=== PATIENT | male | born 2000 | race Caucasian/White ===

== ENCOUNTER 2022-12-03 06:29 | Emergency (ER) | payer MEDICAID, OTHER ==
[2022-12-03] MEDS ORDERED: Sodium Chloride 0.9% 250 ML 250 ML ONE (07:31)
[2022-12-03] MEDS ORDERED: Ondansetron PF 4 MG/2 ML Vial ONE (07:31)
[2022-12-03] MEDS ORDERED: CEFAZOLIN 2 GM VIAL ONE (07:31)
[2022-12-03] MEDS ORDERED: Morphine 4 MG/ML VIAL ONE (07:31)
[2022-12-03] MEDS ORDERED: Boostrix 0.5 ML (Tdap) VIAL (>/=7 yrs of age) ONE (07:31)
[2022-12-03 07:33] LABS: Hemoglobin 10.4 g/dL (14.0-18.0); Mean Corpuscular HGB CONC 35.2 g/dL (32.0-36.0); Mean Corpuscular Hemoglobin 31.5 pg (27.0-31.0); Mean Corpuscular Volume 89.6 fl (78.0-98.0); Mean Platelet Volume 7.3 fL (7.4-10.4); Platelet Count 215 10x3/uL (130-400); RBC Distribution Width 11.7 % (11.5-14.5); Red Blood Cell (RBC) Count 3.31 mill/uL (4.70-6.10); White Blood Cell (WBC) Count 27.3 10x3/uL (4.8-10.8)
[2022-12-03 07:38] LABS: Manual Diff?? YES
[2022-12-03 07:39] LABS: Band 2 % (5-11); MDiff Complete? YES; Neutrophil 85 % (42-75)
[2022-12-03 07:41] LABS: Anisocytosis SLIGHT = 6-15 cells (100X) (0-5/hpf); Lymphocytes 7 % (21-51); Monocytes 6 % (0-10); Platelet Morphology Comment Appears Adequate
[2022-12-03 07:45] LABS: ALT (SGPT) 13 U/L (8-55); AST (SGOT) 16 U/L (5-34); Albumin 3.4 g/dL (3.5-5.0); Alcohol Less than 10 mg/dL (Less than 10); Alkaline Phosphatase 48 U/L (40-110); Anion Gap 15 mmol/L (10-20); BUN (Urea Nitrogen) 12 mg/dL (8.9-20.6); Bilirubin, Total 0.6 mg/dL (0.2-1.2); Calc. Creatinine Clearance 0 mL/min (70-130); Calcium 7.7 mg/dL (7.8-10.44); Carbon Dioxide 18 mmol/L (22-29); Chloride 110 mmol/L (98-107); Estimated GFR 123; Globulin 1.9 g/dL (2.4-3.5); Glucose 117 mg/dL (70-105); Potassium 3.7 mmol/L (3.5-5.1); Protein, Total 5.3 g/dL (6.0-8.3); Sodium 139 mmol/L (136-145)
== END 2022-12-03 08:39 | disposition short-term general hospital (02) ==
LOC: MADERS 06:29
DX: S81.811A Laceration without foreign body, right lower leg, initial encounter (principal); D64.9 Anemia, unspecified; F17.210 Nicotine dependence, cigarettes, uncomplicated; Z23 Encounter for immunization; X78.1XXA Intentional self-harm by knife, initial encounter
CPT/HCPCS: 80053; 80307; 83605; 85025; 90471; 90715; 96365; 96375; J2270; J2405; J7050